=== PATIENT | female | born 1975 | race Caucasian/White ===

== ENCOUNTER 2016-09-05 13:19 | Emergency (ER) | payer SELFPAY ==
[2016-09-05 13:27] VITALS: TEMP 98.2
--- NOTE | 2016-09-05 13:32 | EDPHY ---
H & P Stated Complaint: FALL, LOW BACK PAIN Time Seen by Provider: 09/05/16 13:23 HPI/ROS: CHIEF COMPLAINT: Left flank and midline back pain post fall downstairs HISTORY OF PRESENT ILLNESS: 41-year-old female Qat[place]-speaking only, recently immigrated from [facility] to [place], arrives via ambulance after she slipped on the stairs and fell down on her buttock impacting her back . She brings with her documentation from her communications technologist in [place]. She is complaining of midline lumbar and left flank pain. She has a medical history significant for lupus, thrombocytopenia on daily Lovenox. No head injury. No neck pain or injury. No dyspnea. No chest pain or injury. No buttock pain injury. No lower extremity radiculopathy. 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 History of lupus. History of pulmonary embolus. no relevant medical/surgical history SOCIAL HISTORY: denies alcohol use at time of incident PHYSICAL EXAM 1) GENERAL: Well-developed, well-nourished, alert and oriented. Appears to be in no acute distress. Answering questions appropriately. 2) HEAD: Normocephalic, atraumatic 3) HEENT: Pupils equal, round, reactive to light bilaterally. Negative Horners. Nasopharynx, oropharynx, clear. No deformity or angulation of nose. No septal hematoma. No rhinorrhea. No oral trauma. Ears bilaterally with normal tympanic membranes. No hemotympanum. No fluid or blood in the external auditory canal. No raccoon eyes. No Leavitt sign. Teeth are normally aligned with no gross malocclusion, TMJ bilaterally nontender, facial bones nontender including the zygomatic arch, maxilla mandible. 4) NECK: No cervical collar is on. Posterior cervical spine is nontender, no stepoff, no effusion. Full range of motion which does not elicit any midline cervical spine pain, no posterior midline tenderness, no step-off. 5) LUNGS: Clear to auscultation bilaterally, no wheezes, no rhonchi, no retractions. No obvious signs of trauma. No chest wall pain. No flaring, no grunting. Moving symmetrically. No crepitus. 6) HEART: Regular rate and rhythm, 7) ABDOMEN: No guarding, no rebound, no focal tenderness, no peritoneal signs, no signs of trauma, no ecchymosis 8) MUSCULOSKELETAL: Moving all extremities, no focal areas of tenderness, no obvious trauma. 9) BACK: Patient logrolled. She is tender to palpation mid lumbar region and left flank and left upper quadrant of abdomen. No visible signs of trauma. 10) SKIN: No laceration. No abrasion 11) NEURO: Awake, alert, and oriented to person, place and time. Answers questions appropriately. There were no obvious focal neurologic abnormalities. No cerebellar dysfunction. Upper and lower extremities bilaterally with strength 5 / 5, reflexes 2+. DIFFERENTIAL DIAGNOSIS: In no particular include but limited to vertebral fracture, renal contusion, splenic fracture, muscle strain - Personal History Current Tetanus/Diphtheria Vaccine: Unsure - Medical/Surgical History Hx Asthma: No Hx Chronic Respiratory Disease: No Hx Diabetes: No Hx Cardiac Disease: Yes Hx Renal Disease: No Hx Cirrhosis: No Hx Alcoholism: No Hx HIV/AIDS: No Hx Splenectomy or Spleen Trauma: No Other PMH: LUPUS, PE, PERICARDITIS - Social History Smoking Status: Unknown if ever smoked Constitutional: Initial Vital Signs Temperature (C) 36.8 C 09/05/16 13:25 Heart Rate 71 09/05/16 13:25 Respiratory Rate 16 09/05/16 13:25 Blood Pressure 133/82 H 09/05/16 13:25 O2 Sat (%) 96 09/05/16 13:25 O2 Delivery Mode Room Air Allergies/Adverse Reactions: No Known Allergies Allergy (Unverified 09/05/16 13:23) Home Medications: Medication Instructions Recorded Enoxaparin 09/05/16 HCTZ (*) 09/05/16 Solu-Medrol 09/05/16 oxyCODONE/APAP 5/325 [Percocet 1 tab PO Q6 #14 tab 09/05/16 5/325] Medical Decision Making - Diagnostics Imaging Results: Imaging Impressions Abdomen CT 09/05/16 14:06 Impression: 1. Question splenomegaly versus normal variant for the patient. 2. Two filters in the IVC, with the proximal one tilted into the right renal vein, and the lower one in the IVC. No evidence of IVC or femoral or iliac clot. 3. T12 fracture. Please see additional dictation for details. Findings and recommendations discussed with Gee Hutson PA-C at 1602 hours on September 05, 2016. Final report concurs with initial preliminary interpretation. Lumbar Spine CT 09/05/16 14:06 Impression: T12 compression fracture with a 5-mm retropulsed fragment, causing mild canal compromise. This fracture involves anterior, mid, and posterior one third of the vertebral column. Findings and recommendations discussed with Gee Hutson PA-C at 1605 hours on September 05, 2016. Final report concurs with initial preliminary interpretation. Images reviewed by myself ED Course/Re-evaluation: 1:30 p.m.: [place] healthcare interpreter has been used in management of this patient. She is complaining of left flank and left upper quadrant abdominal pain with history of chronic anticoagulant use, Lovenox. Will obtain imaging, CT of abdomen and pelvis and re-evaluate. 4:10 p.m.: Re-evaluation. Discussed her imaging results. Re-evaluated patient. She is focally tender approximately the T12 level. Discussed case with Dr. Stapleton in the ER. Recommended MRI. Indications risks benefits discussed with patient. She has no subjective neurologic complaints and a nonfocal neurologic exam. 5:35 p.m.: Phone consultation with radiologist Dr. Garcia regarding the patient' s IVC filter x2. Patient does not know specifically what type of filters arm place /were placed in [place] in April 2016 whether they are ferromagnetic or not. 5:45 p.m.: Phone consultation with Dr. Schaffer neurosurgery. Explained the clinical and diagnostic findings and past medical history of IVC filter. He recommends that absence of neurologic deficits patient be placed Madison brace and follow up in 4 weeks in clinic. Patient has been reexaminedAnd has no neurologic deficits. 7:00 p.m.: Admitting Office Escort orthotics in the emergency department. With assistance of a Qat[place] healthcare interpreter the discharge instructions and plan have been discussed the patient feels comfortable with this plan. She remains neurologically intact. - Data Points Laboratory Results: Laboratory Results 09/05/16 13:45 09/05/16 13:45 09/05/16 09/05/16 09/05/16 13:45 13:45 13:45 WBC RBC Hgb Hct MCV MCH MCHC RDW Plt Count MPV Neut % (Auto) Lymph % (Auto) [place] % (Auto) Eos % (Auto) Baso % (Auto) Nucleat RBC Rel Count Absolute Neuts (auto) Absolute Lymphs (auto) Absolute Monos (auto) Absolute Eos (auto) Absolute Basos (auto) Absolute Nucleated RBC Immature Gran % Immature Gran # PT 13.7 SEC SEC (12.0-15.0) INR 1.06 (0.83-1.16) APTT 37.4 SEC SEC (23.0-38.0) Sodium 138 mEq/L mEq/L (134-144) Potassium 4.5 mEq/L mEq/L (3.5-5.2) Chloride 106 mEq/L mEq/L (97-110) Carbon Dioxide 21 mEq/l L mEq/l (22-31) Anion Gap 11 mEq/L mEq/L (8-16) BUN 19 mg/dL mg/dL (7-23) Creatinine 0.6 mg/dL mg/dL (0.6-1.0) Estimated GFR > 60 Glucose 99 mg/dL mg/dL (70-100) Calcium 9.4 mg/dL mg/dL (8.5-10.4) Beta HCG, Qual NEGATIVE 09/05/16 13:45 WBC 10.84 10^3/uL H 10^3/uL (3.80-9.50) RBC 4.59 10^6/uL 10^6/uL (4.18-5.33) Hgb 10.5 g/dL L g/dL (12.6-16.3) Hct 34.4 % L % (38.0-47.0) MCV 74.9 fL L fL (81.5-99.8) MCH 22.9 pg L pg (27.9-34.1) MCHC 30.5 g/dL L g/dL (32.4-36.7) RDW 15.4 % H % (11.5-15.2) Plt Count 299 10^3/uL 10^3/uL (150-400) MPV 9.9 fL fL (8.7-11.7) Neut % (Auto) 81.7 % H % (39.3-74.2) Lymph % (Auto) 11.1 % L % (15.0-45.0) [place] % (Auto) 5.7 % % (4.5-13.0) Eos % (Auto) 0.3 % L % (0.6-7.6) Baso % (Auto) 0.3 % % (0.3-1.7) Nucleat RBC Rel Count 0.0 % % (0.0-0.2) Absolute Neuts (auto) 8.86 10^3/uL H 10^3/uL (1.70-6.50) Absolute Lymphs (auto) 1.20 10^3/uL 10^3/uL (1.00-3.00) Absolute Monos (auto) 0.62 10^3/uL 10^3/uL (0.30-0.80) Absolute Eos (auto) 0.03 10^3/uL 10^3/uL (0.03-0.40) Absolute Basos (auto) 0.03 10^3/uL 10^3/uL (0.02-0.10) Absolute Nucleated RBC 0.00 10^3/uL 10^3/uL (0-0.01) Immature Gran % 0.9 % % (0.0-1.1) Immature Gran # 0.10 10^3/uL 10^3/uL (0.00-0.10) PT INR APTT Sodium Potassium Chloride Carbon Dioxide Anion Gap BUN Creatinine Estimated GFR Glucose Calcium Beta HCG, Qual Medications Given: Discontinued Medications Fentanyl (Sublimaze) 100 mcg IVP EDNOW ONE Stop: 09/05/16 17:01 Last Admin: 09/05/16 17:00 Dose: 100 mcg Departure - Departure Disposition: Home, Routine, Self-Care Clinical Impression: T12 compression fracture Qualifiers: Encounter type: initial encounter Qualified Code(s): M48.54XA - Collapsed vertebra, not elsewhere classified, thoracic region, initial encounter for fracture Condition: Good Instructions: Vertebral Compression Fracture (ED) Additional Instructions: Please follow-up with your local community [facility] at [address] [place] [address]. Please call them to make a new patient appointment ([phone]) and also ask to be referred to a communications technologist. Return to the emergency department if you develop numbness, tingling legs, changes in urination or stooling habits, worsening pain or any other symptoms that concern you. Referrals: Lorenzo Schaffer MD [Medical Doctor] - 5-7 days, call for appt. Prescriptions: oxyCODONE/APAP 5/325 [Percocet 5/325] 1 tab PO Q6 #14 tab
[2016-09-05 13:48] LABS: % IMMATURE GRANULYOCYTES 0.9 % (0.0-1.1); ADD DIFF? NO; ADD MORPH? NO; ADD SCAN? NO; ATYPICAL LYMPHOCYTE FLAG 20 (0-99); FRAGMENT RBC FLAG 0 (0-99); HEMATOCRIT 34.4 % (38.0-47.0); HEMOGLOBIN 10.5 g/dL (12.6-16.3); LEFT SHIFT FLG 0 (0-99); LIPEMIA HEMOLYSIS FLAG 80 (0-99); MEAN CELL HEMOGLOBIN 22.9 pg (27.9-34.1); MEAN CELL HEMOGLOBIN CONCENTR. 30.5 g/dL (32.4-36.7); MEAN CELL VOLUME 74.9 fL (81.5-99.8); MEAN PLATELET VOLUME 9.9 fL (8.7-11.7); PLATELET CLUMPS FLAG 20 (0-99); PLATELET COUNT 299 10^3/uL (150-400); RED BLOOD CELL COUNT 4.59 10^6/uL (4.18-5.33); RED CELL DISTRIBUTION WIDTH 15.4 % (11.5-15.2)
[2016-09-05 14:04] LABS: INR 1.06 (0.83-1.16); PROTIME(PATIENT) 13.7 SEC (12.0-15.0)
[2016-09-05 14:05] LABS: APTT 37.4 SEC (23.0-38.0)
[2016-09-05 14:15] LABS: ANION GAP 11 mEq/L (8-16); CALCIUM 9.4 mg/dL (8.5-10.4); CARBON DIOXIDE 21 mEq/l (22-31); CHLORIDE 106 mEq/L (97-110); CREATININE 0.6 mg/dL (0.6-1.0); GLOMERULAR FILTRATION RATE > 60; GLUCOSE 99 mg/dL (70-100); POTASSIUM 4.5 mEq/L (3.5-5.2); SODIUM 138 mEq/L (134-144)
[2016-09-05] MEDS ORDERED: IOPAMIDOL (ISOVUE-300) 100 ML BTL IV ONE (15:10)
[2016-09-05] MEDS ORDERED: fentaNYL 100 MCG/2 ML INJ ONE (16:45)
[2016-09-05] MEDS ORDERED: fentaNYL 100 MCG/2 ML INJ IVP ONE (17:00)
[2016-09-05] MEDS ORDERED: HYDROCOD/APAP 5/325 PREPACK#6 BTL TAKEHOME ONE (19:13)
[2016-09-05 20:28] VITALS: BP 148/58; PULSE 89; RESP 20; O2SAT 93
== END 2016-09-05 20:28 | disposition home or self-care (01) ==
DX: S22.080A Wedge compression fracture of T11-T12 vertebra, initial encounter for closed fracture (principal); W10.9XXA Fall (on) (from) unspecified stairs and steps, initial encounter
CPT/HCPCS: 96374; J3010; Q9967